=== PATIENT | female | born 1945 | race Caucasian/White ===

== ENCOUNTER 2018-03-01 12:33 | Emergency (ER) | payer MEDICARE ==
--- NOTE | 2018-03-01 12:57 | ED Physician Documentation ---
PD HPI LOWER EXT INJURY - Stated complaint Stated Complaint: ANKLE INJURY - Chief complaint Chief Complaint: Ext Problem - History obtained from History obtained from: Patient, Family - History of Present Illness PD HPI LOW EXT INJURY LOCATION: Right, Ankle Type of injury: Fall (in a ditch) Where injury occurred: Street Timing - onset: Today Timing - details: Abrupt onset Associated symptoms: Swelling - Additional information Additional information: no other inj, cannot bear weight Review of Systems Musculoskeletal: reports: Joint pain, Pain with weight bearing. denies: Neck pain, Back pain Neurologic: denies: Headache, Head injury, LOC PD PAST MEDICAL HISTORY - Past Medical History Past Medical History: Yes Cardiovascular: Hypertension Respiratory: Other Other Past Medical History: P.E. - Past Surgical History Past Surgical History: No - Present Medications Home Medications: Ambulatory Orders Medication Instructions Recorded Confirmed Lisinopril 03/01/18 Rivaroxaban [Xarelto] 03/01/18 - Allergies Allergies/Adverse Reactions: Allergies Allergy/AdvReac Type Severity Reaction Status Date / Time No Known Drug Allergies Allergy Verified 03/01/18 12:37 - Social History Does the pt smoke?: No Smoking Status: Never smoker Does the pt drink ETOH?: Yes Does the pt have substance abuse?: No - Immunizations Immunizations are current?: Yes PD ED PE NORMAL - Vitals Vital signs reviewed: Yes - General General: Alert and oriented X 3, No acute distress - Abdomen Abdomen: Soft, Non tender - Extremities Extremities: Other (TTP R ATFL>lateral malleolus. No medial malleolus TTP or foot or prox fib TTP.) - Neuro Neuro: Alert and oriented X 3, Normal speech - Psych Psych: Normal mood, Normal affect Results - Vitals Vitals: Vital Signs - 24 hr 03/01/18 12:35 Temperature 36.8 C Heart Rate 64 Respiratory 20 Rate Blood Pressure 145/78 H O2 Saturation 100 Oxygen O2 Source Room air - Rads (name of study) 3v R ankle Radiology: EMP read contemporaneously (no frx) PD MEDICAL DECISION MAKING - Sepsis Event Vital Signs: Vital Signs - 24 hr 03/01/18 12:35 Temperature 36.8 C Heart Rate 64 Respiratory 20 Rate Blood Pressure 145/78 H O2 Saturation 100 Oxygen O2 Source Room air Departure - Departure Disposition: 01 Home, Self Care Clinical Impression: Right ankle sprain Qualifiers: Encounter type: initial encounter Involved ligament of ankle: anterior talofibular ligament Qualified Code(s): S93.491A - Sprain of other ligament of right ankle, initial encounter Condition: Good Record reviewed to determine appropriate education?: Yes Instructions: ED Sprain Ankle W X Ray Comments: Tylenol or ibuprofen as needed for pain, elevate and ice it when not up and around. He can start to bear weight when it is not too painful to do so. He is the crutches you have with you. You do not have to sleep with the ankle splint on but best to have on most of the time when you are up and around for the at least a few days. Follow-up with your doctor on return home. Your blood pressure was elevated today on check into the emergency department. This does not mean that you have hypertension, it is a common phenomenon to come to the emergency department and have elevated blood pressure. I recommend that you see your primary care physician within the week to have it rechecked when you are feeling better.
--- NOTE | 2018-03-01 13:41 | XRAY Report ---
Procedure Date: 03/01/2018 Accession Number: [id number] / [id number] Procedure: XR - Ankle 3 View RT CPT Code: FULL RESULT: EXAM: RIGHT ANKLE RADIOGRAPHY EXAM DATE: 03/01/2018 01:09 PM. CLINICAL HISTORY: Right ankle injury, swelling after trauma COMPARISON: None. TECHNIQUE: 3 views. FINDINGS: Bones: No fracture. Mild degenerative spurring at the dorsal aspect of the navicular bone. Miniscule plantar calcaneal spur Joints: Nonweightbearing exam. No tibiotalar effusion Soft Tissues: Mild soft tissue swelling about the ankle IMPRESSION: Mild right ankle soft tissue swelling. No underlying acute osseous abnormality on nonweightbearing exam. [facility]
[2018-03-01 13:58] VITALS: BP 135/70
== END 2018-03-01 13:56 | disposition home or self-care (01) ==
LOC: ED 12:33
DX: S93.491A Sprain of other ligament of right ankle, initial encounter (principal); W19.XXXA Unspecified fall, initial encounter; Y92.410 Unspecified street and highway as the place of occurrence of the external cause; I10 Essential (primary) hypertension; Z86.711 Personal history of pulmonary embolism; Z79.01 Long term (current) use of anticoagulants
CPT/HCPCS: 99283